=== PATIENT | female | born 1990 | race Caucasian/White ===

== ENCOUNTER 2017-01-17 10:01 | Emergency (ER) | payer OTHER ==
[~2017-01-17] VITALS: Ht 154.9 cm; Wt 86.2 kg
[2017-01-17 10:35] LABS: HEMOGLOBIN 13.2 gm/dL (12.0-15.0); MCH 29.7 pg (26.0-34.0); MCHC 33.8 g/dL (28.0-37.0); MCV 87.9 fL (80.0-100.0); RBC 4.44 mil/uL (4.20-5.00); RDW 13.1 % (10.5-14.5); WBC 10.1 thou/uL (4.0-11.0)
[2017-01-17 10:43] LABS: CALCIUM 9.3 mg/dL (8.5-10.1); CREATININE 0.7 mg/dL (0.6-1.0); POTASSIUM 3.6 mmol/L (3.5-5.1)
[2017-01-17] MEDS ORDERED: PRENATAL COMPL1 EACH PO (12:04)
[2017-01-17] MEDS ORDERED: PRENATAL FORMU1 EAC2 PO (12:07)
[2017-01-17 12:48] VITALS: BP 106/55
[2017-01-20 19:11] LABS: CHLAMYDIA TRACHOMATIS-PCR Negative (Negative); NEISSERIA GONORRHEA-PCR Negative (Negative)
== END 2017-01-17 12:05 | disposition home or self-care (01) ==
LOC: ER 10:01
PROVIDERS: Emergency Medicine
DX: O20.0 Threatened abortion (principal); F10.99 Alcohol use, unspecified with unspecified alcohol-induced disorder; Z3A.08 8 weeks gestation of pregnancy